=== PATIENT | female | born 1955 | race Caucasian/White ===

== ENCOUNTER 2024-04-21 10:24 | Emergency (ER) | payer MEDICARE, OTHER, MEDICAID ==
[~2024-04-21] VITALS: Ht 160 cm; Wt 65.0 kg
[2024-04-21] MEDS ORDERED: FLUOXETINE HCL10 MG PO (10:52)
[2024-04-21] MEDS ORDERED: METFORMIN HCL500 MG PO (10:52)
[2024-04-21] MEDS ORDERED: TIMOLOL MALEAT1 EAC1 OP (10:52)
[2024-04-21] MEDS ORDERED: TAFLUPROST OP (10:52)
[2024-04-21 11:03] LABS: BASOPHILS 0.8 % (0-2); EOSINOPHILS 0.4 % (0-6); HEMATOCRIT 41.1 % (35.0-50.0); HEMOGLOBIN 14.3 g/dL (12.0-18.0); LYMPHOCYTES 21.9 % (24-44); MCHC 34.7 g/dl (30-36); MCV 86.4 fl (81-99); MONOCYTES 6.9 % (0-12); PLATELET COUNT 217 K/uL (140-440); RBC 4.76 M/ul (4.3-5.7); RDW 13.3 (10.5-15.0)
[2024-04-21 11:13] LABS: INR 0.95 (0.80-1.30); PROTIME 12.3 Sec (11.2-14.2)
[2024-04-21 11:15] LABS: PARTIAL THROMBOPLASTIN TIME 23.2 Sec (22.9-41.3)
[2024-04-21 11:30] LABS: ALBUMIN 3.7 g/dL (3.4-5.0); BILIRUBIN, TOTAL 0.7 ng/dL (0.2-1.0); BUN/CREATININE RATIO 15.68 (6.0-28.6); CALCIUM 9.4 mg/dL (8.5-10.1); CREATININE, SERUM 1.02 mg/dL (0.55-1.02); MAGNESIUM 1.7 mg/dL (1.8-2.4); PROTEIN, TOTAL 7.4 g/dL (6.4-8.2)
[2024-04-21 11:42] LABS: INFLUENZA B NAA NEGATIVE (NEGATIVE); RESPIRATORY SYNCYTIAL VIR NAA NEGATIVE (NEGATIVE)
[2024-04-21 11:58] LABS: ALCOHOL, MEDICAL <3 ng/dL (<3); TSH, 3RD GENERATION 2.128 uIU/mL (0.358-3.740)
[2024-04-21 12:16] LABS: BILIRUBIN, URINE NEGATIVE (negative); BLOOD/HGB, URINE NEGATIVE (Negative); KETONE, URINE NEGATIVE (Negative); LEUK ESTERASE, URINE NEGATIVE (negative); NITRITE, URINE NEGATIVE (negative); PH, URINE 5.5 (5-7)
[2024-04-21 12:24] LABS: EPITHELIAL CELLS, URINE SQUAMOUS 1+ /lpf (0-1+)
[2024-04-21 12:25] LABS: BACTERIA, URINE NONE SEEN /hpf (negative); CASTS, URINE NONE SEEN \\lpf; COLLECTION TYPE, URINE CLEAN CATCH; CRYSTALS, URINE NONE SEEN (0-1+); RED BLOOD CELLS, URINE 0-1 /hpf (0-5); REFLEX CULTURE, URINE No (No); WHITE BLOOD CELLS, URINE 0-1 /HPF (0-5)
[2024-04-21] MEDS ORDERED: BENZONATATE200 MG PO (13:00)
[2024-04-21 13:12] VITALS: BP 180/104
--- NOTE | 2024-04-22 12:17 | EKG ---
[facility] [address] [place], [place] [address] Signed Normal sinus rhythm Normal ECG No previous ECGs available Confirmed by Lyn Raphael MD ([id number]) on 04/22/2024 12:17:48 PM Electronically Signed By: LYN RAPHAEL DO 04/22/24 1217 PATIENT NAME: DANELLE CORTES Electrocardiogram DATE OF : 55 PHYSICIAN: LYN RAPHAEL DO REPORT #: [id number] REPORT IS CONFIDENTIAL AND NOT TO BE RELEASED WITHOUT AUTHORIZATION
== END 2024-04-21 13:12 | disposition home or self-care (01) ==
LOC: ED 10:24
PROVIDERS: Emergency Medicine
DX: R53.1 Weakness (principal); R05.9 Cough, unspecified; Z79.84 Long term (current) use of oral hypoglycemic drugs
CPT/HCPCS: 36415; 70450; 71045; 80053; 81001; 83735; 83880; 84443; 84484; 85025; 85610; 85730; 87502; 93005; 93010; 99285-25; G0480; U0002